=== PATIENT | female | born 1990 | race Caucasian/White ===

== ENCOUNTER 2016-04-28 15:10 | Emergency (ER) | payer OTHER, BC ==
[~2016-04-28] VITALS: Ht 165.1 cm; Wt 100.0 kg
[2016-04-28 15:14] VITALS: BP 137/75; PULSE 122; RESP 26; TEMP 98; O2SAT 100
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
[2016-04-28] MEDS ORDERED: KETOROLAC TROMETHAMINE 60 MG/2 ML (IM) VIAL IM ONE (16:00)
[2016-04-28] MEDS ORDERED: LORazepam 1 MG TAB PO ONE (16:00)
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
[2016-04-28] MEDS ORDERED: IBUP-232 PO (17:04)
[2016-04-28] MEDS ORDERED: ROBA500T PO (17:04)
== END 2016-04-28 17:13 | disposition home or self-care (01) ==
LOC: NEPB 15:10
DX: S16.1XXA Strain of muscle, fascia and tendon at neck level, initial encounter (principal); R00.0 Tachycardia, unspecified; V43.62XA Car passenger injured in collision with other type car in traffic accident, initial encounter; Y99.8 Other external cause status
CPT/HCPCS: 72040; 96372; 99283; J1885